=== PATIENT | female | born 1940 | race Hispanic/Latino ===

== ENCOUNTER 2024-09-15 22:03 | Emergency (ER) | payer BC, OTHER ==
[2024-09-15] MEDS ORDERED: ONDANSETRON 4 MG (ODT) TAB ONE (22:46)
[2024-09-15] MEDS ORDERED: HYDROCODONE/APAP 5/325 MG TAB ONE (22:46)
--- NOTE | 2024-09-16 00:21 | ER ---
Nurse's Notes [facility] Name: Brielle Carlton Age: 83 yrs Sex: Female : 1940 Arrival Date: 09/15/2024 Time: 22:03 Bed 18 Private MD: Diagnosis: Pain in left leg-lateral thigh;Fall on same level, unspecified Presentation: 09/15 22:36 Chief complaint: Patient states: I took a miss step up my stairs and fell and now my kd3 hip hurts. 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 I think i might have re injured it. I threw up on the way here because of the pain. Coronavirus screen: Vaccine status: Patient reports being unvaccinated. Ebola Screen: No symptoms or risks identified at this time. Initial Sepsis Screen: Does the patient meet any 2 criteria? No. Patient's initial sepsis screen is negative. Does the patient have a suspected source of infection? No. Patient's initial sepsis screen is negative. Risk Assessment: Do you want to hurt yourself or someone else? Patient reports no desire to harm self or others. Onset of symptoms was September 15, 2024. 22:36 Method Of Arrival: Wheelchair kd3 22:36 Acuity: DARSHAN 3 kd3 09/16 00:13 Care prior to arrival: None. Mechanism of Injury: Fall from standing position. ss12 Triage Assessment: 09/15 22:37 General: Appears uncomfortable, Behavior is calm, cooperative. Pain: Complains of pain kd3 in left hip. Historical: - Allergies: 22:37 No Known Allergies; kd3 - Immunization history:: Adult Immunizations up to date. - Infectious Disease History:: Denies. - Immunization history: Last tetanus immunization: unknown. - Social history:: Smoking status: Patient denies any tobacco usage or history of. Screenin/09 00:10 [facility] ED Fall Risk Assessment (Adult) History of falling in the last 3 months, ss12 including since admission Yes- single mechanical fall (1 pt) Confusion or Disorientation No (0 pts) Intoxicated or Sedated No (0 pts) Impaired Gait No (0 pts) Mobility Assist Device Used No (0 pt) Altered Elimination No (0 pt) Score/Fall Risk Level 0 - 2 = Low Risk. Abuse screen: Denies threats or abuse. Denies injuries from another. Nutritional screening: No deficits noted. Tuberculosis screening: No symptoms or risk factors identified. Primary Survey: 09/15 23:00 NO uncontrolled hemorrhage observed. Breathing/Chest: Spontaneous respiratory effort, ss12 equal unlabored respirations, breath sounds clear bilaterally, regular pattern, symmetrical chest rise and fall. Circulation: No external hemorrhage present. Regular and strong central pulse, skin warm/dry/normal color. Disability Pupils are equal, round, reactive to light and accommodation. Client is alert. Exposure/Environment: A warming method has been applied: A warm blanket has been provided to the patient. 09/16 00:14 Reassessment Breathing: Spontaneous respiratory effort, equal unlabored respirations, ss12 breath sounds clear bilaterally, regular pattern with symmetrical chest rise and fall. Circulation: No external hemorrhage noted. Regular and strong central pulse, skin warm/dry/normal color. Disability: Pupils Pupils are equal, round, reactive to light and accomodation. Alert. Assessment: 09/15 22:30 General: Appears uncomfortable, Behavior is restless. Pain: Complains of pain in left ss12 hip Pain does not radiate. Pain currently is 10 out of 10 on a pain scale. Quality of pain is described as aching, Pain began suddenly, post fall Is. Neuro: No deficits noted. Level of Consciousness is awake, alert, obeys commands, Oriented to person, place, time, situation. Cardiovascular: No deficits noted. Reports nausea, vomiting, Denies syncope, Patient's skin is warm and dry. Respiratory: No deficits noted. Airway is patent Respiratory effort is even, unlabored, Respiratory pattern is regular, symmetrical. GI: No deficits noted. No signs and/or symptoms were reported involving the gastrointestinal system. Abdomen is flat, non-distended. : No deficits noted. No signs and/or symptoms were reported regarding the genitourinary system. : brief changed. incontinent of urine. EENT: No deficits noted. No signs and/or symptoms were reported regarding the EENT system. Derm: No deficits noted. Skin is intact, Skin is dry, Skin is pink, warm \T\ dry. normal. Musculoskeletal: Circulation, motion, and sensation intact. Capillary refill < 3 seconds. 23:30 Reassessment: Patient appears in no apparent distress at this time. Patient and/or ss12 family updated on plan of care and expected duration. Pain level reassessed. Patient is alert, oriented x 3, equal unlabored respirations, skin warm/dry/pink. 09/16 00:30 Reassessment: Patient appears in no apparent distress at this time. Patient and/or ss12 family updated on plan of care and expected duration. Pain level reassessed. Patient is alert, oriented x 3, equal unlabored respirations, skin warm/dry/pink. Vital Signs: 09/15 22:36 BP 160 / 73; Pulse 71; Resp 18; Temp 97.5(O); Pulse Ox 100% on R/A; Weight 32.21 kg; kd3 Height 5 ft. 2 in. ; Pain 10/10; 23:00 BP 144 / 67; Pulse 56; Resp 16 S; Pulse Ox 100% on R/A; ss12 09/16 00:00 BP 136 / 58; Pulse 54; Resp 16 S; Pulse Ox 100% on R/A; ss12 00:30 BP 127 / 77; Pulse 57; Resp 16 S; Pulse Ox 100% on R/A; ss12 09/15 22:36 Body Mass Index 12.99 (32.21 kg, 157.48 cm) kd3 09/15 22:36 Pain Scale: Adult kd3 Samanta Coma Score: 00:15 Eye Response: spontaneous(4). Motor Response: obeys commands(6). Verbal Response: ss12 oriented(5). Total: 15. Trauma Score (Adult): 09/15 23:00 Eye Response: spontaneous(1); Verbal Response: oriented(1); Motor Response: obeys ss12 commands(2); Systolic BP: > 89 mm Hg(4); Respiratory Rate: 10 to 29 per min(4); [place] Score: 15; Trauma Score: 12 ED Course: 22:07 Patient arrived in ED. gl 22:11 Fern[facility]C [facility] kb 22:11 Javier Jacobson MD is Attending Physician. kb 22:37 Triage completed. kd3 22:37 Arm band placed on right wrist. kd3 22:40 Delano Wick, RN is Primary Nurse. ss12 23:15 Femur Left XRAY In Process Unspecified. EDMS 23:15 Pelvis XRAY In Process Unspecified. EDMS 09/16 00:13 No provider procedures requiring assistance completed. ss12 00:14 Patient has correct armband on for positive identification. ss12 00:14 Provided Education on: plan of care. ss12 00:14 Thermoregulation: warm blanket given to patient. ss12 00:14 Patient maintains SpO2 saturation greater than 95% on room air. ss12 00:54 Patient did not have IV access during this emergency room visit. ss12 Administered Medications: 09/15 22:50 Drug: HYDROcodone-acetaminophen PO 5 mg-325 mg 1 tabs PO once Route: PO; ss12 22:50 Drug: Ondansetron Oral Disintegrating Tablet Oral Disintegrating Tablet 4 mg PO once ss12 Route: PO; Medication: 09/16 00:13 VIS not applicable for this client. ss12 Intake: 00:14 PO: 50ml (Water); Total: 50ml. ss12 Outcome: 00:14 Patient's length of stay was not longer than 2 hours. ss12 00:21 Discharge ordered by MD. kb 00:54 Discharged to home ambulatory, ss12 00:54 Condition: stable 00:54 Discharge instructions given to patient, family, Instructed on discharge instructions, follow up and referral plans. Demonstrated understanding of instructions, follow-up care, Prescriptions given X 2, 00:56 Patient left the ED. 12 Signatures: Dispatcher [employer] EDNE Fernanda Au, LISANDRA JIN-Alethea Godinez, RN RN kd3 Alyssia Dhaliwal, Reg Reg gl Delano Wick, RN RN ss12 Corrections: (The following items were deleted from the chart) 00:53 00:53 Reassessment: Patient appears in no apparent distress at this time. Patient ss12 and/or family updated on plan of care and expected duration. Pain level reassessed. Patient is alert, oriented x 3, equal unlabored respirations, skin warm/dry/pink. ss12
--- NOTE | 2024-09-16 00:21 | EDPHYS ---
Physician Documentation [facility] Name: Brielle Carlton Age: 83 yrs Sex: Female : 1940 Arrival Date: 09/15/2024 Time: 22:03 Bed 18 Private MD: ED Physician Javier Jacobson HPI: 09/16 00:54 This 83 yrs old Female presents to ER via Wheelchair with complaints of Fall kb Injury, Hip Injury. 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 States she was walking through the threshold of her granddaughter's house and didn't left her foot enough. States she tripped and fell into the house. Denies any other injury or trauma. . Historical: - Allergies: 09/15 22:37 No Known Allergies; kd3 - Immunization history:: Adult Immunizations up to date. - Infectious Disease History:: Denies. - Immunization history: Last tetanus immunization: unknown. - Social history:: Smoking status: Patient denies any tobacco usage or history of. ROS: 09/16 00:53 Constitutional: As per HPI kb Exam: 00:53 Constitutional: This is a well developed, well nourished patient who is awake, alert, kb and in no acute distress. Head/Face: Normocephalic, atraumatic. ENT: Moist Mucous membranes Cardiovascular: Regular rate Respiratory: Respirations even and unlabored. No increased work of breathing. Talking in full sentences Abdomen/GI: Soft, non-tender. No distention Skin: Warm, dry with normal turgor. Normal color. Neuro: Awake and alert, GCS 15, oriented to person, place, time, and situation. 00:53 Musculoskeletal/extremity: Extremities: grossly normal except: noted in the lateral aspect of left thigh: pain, tenderness, ROM: intact in all extremities, Circulation is intact in all extremities. Sensation intact. Weight bearing: is unable to bear weight, Vital Signs: 09/15 22:36 BP 160 / 73; Pulse 71; Resp 18; Temp 97.5(O); Pulse Ox 100% on R/A; Weight 32.21 kg; kd3 Height 5 ft. 2 in. ; Pain 10/10; 23:00 BP 144 / 67; Pulse 56; Resp 16 S; Pulse Ox 100% on R/A; ss12 09/16 00:00 BP 136 / 58; Pulse 54; Resp 16 S; Pulse Ox 100% on R/A; ss12 00:30 BP 127 / 77; Pulse 57; Resp 16 S; Pulse Ox 100% on R/A; ss12 09/15 22:36 Body Mass Index 12.99 (32.21 kg, 157.48 cm) kd3 09/15 22:36 Pain Scale: Adult kd3 Samanta Coma Score: 00:15 Eye Response: spontaneous(4). Motor Response: obeys commands(6). Verbal Response: ss12 oriented(5). Total: 15. Trauma Score (Adult): 09/15 23:00 Eye Response: spontaneous(1); Verbal Response: oriented(1); Motor Response: obeys ss12 commands(2); Systolic BP: > 89 mm Hg(4); Respiratory Rate: 10 to 29 per min(4); [place] Score: 15; Trauma Score: 12 MDM: 22:11 Medical Screening Exam initiated kb 09/16 00:54 Differential diagnosis: contusion, fracture, strain, dislocation. Data reviewed: vital kb signs, nurses notes. Historians other than the Patient: Family Member: son. Counseling: I had a detailed discussion with the patient and/or guardian regarding the historical points, exam findings, and any diagnostic results supporting the discharge/admit diagnosis, radiology results, the need for outpatient follow up, a family practitioner, to return to the emergency department if symptoms worsen or persist or if there are any questions or concerns that arise at home. 09/15 22:24 Order name: Femur Left XRAY kb 09/15 22:24 Order name: Pelvis XRAY Administered Medications: 09/15 22:50 Drug: HYDROcodone-acetaminophen PO 5 mg-325 mg 1 tabs PO once Route: PO; ss12 22:50 Drug: Ondansetron Oral Disintegrating Tablet Oral Disintegrating Tablet 4 mg PO once ss12 Route: PO; Disposition: 09/16 04:18 Co-signature as Attending Physician, Javier Jacobson MD I agree with the assessment sp4 and plan of care. I reviewed the patient's care provided by the Advanced Practice Provider and agree with the diagnosis and treatment plan. Disposition Summary: 09/16/24 00:21 Discharge Ordered Notes: Location: Home kb Condition: Stable kb Diagnosis - Pain in left leg - lateral thigh kb - Fall on same level, unspecified kb Followup: kb - With: Emergency Department - When: As needed - Reason: Worsening of condition Followup: kb - With: Private Physician - When: 2 - 3 days - Reason: Recheck today's complaints, Continuance of care, Re-evaluation by your physician Discharge Instructions: - Discharge Summary Sheet kb - Musculoskeletal Pain kb - Fall Prevention in the Home, Adult, [id number] kb Forms: - Medication Reconciliation Form kb - Antibiotic Education kb - Prescription Opioid Use kb - Patient Portal Instructions kb - Leadership Thank You Letter kb Prescriptions: - acetaminophen-codeine 300-30 mg Oral tablet - take 1 tablet ORAL route every 4 to 6 hours as needed for pain; 12 tablet; kb Refills: 0, Product Selection Permitted - Zofran 4 mg Oral tablet - take 1 tablet ORAL route every 6 hours As needed; 12 tablet; Refills: 0, kb Product Selection Permitted Signatures: Dispatcher [employer] EDFernanda Michaels FNP-C FNP-Alethea Godinez, RN RN kd3 Javier Jacobson MD MD sp4 Delano Wick RN RN ss12 Corrections: (The following items were deleted from the chart) 09/15 22:25 22:25 Pelvis+RAD.RAD.[email or web address] ordered. EDDE EDMS
--- NOTE | 2024-09-16 00:39 | RAD REPORT ---
EXAM: XR Pelvis, 1 or 2 Views CLINICAL HISTORY: The patient is 83 years old and is Female; PAIN TECHNIQUE: Frontal view of the pelvis. COMPARISON: No relevant prior studies available. FINDINGS: BONES/JOINTS: A left hip prosthesis is present. 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 The bones are osteopenic. The femoral heads are located. The SI joints and pubic symphysis are intact without evidence of diastases. No acute fract ure. No dislocation. SOFT TISSUES: Unremarkable. IMPRESSION: No acute findings in the pelvis. Electronically signed by: Pina Hastings MD 09/15/2024 11:53 PM CDT RP Due to temporary technical issues with the PACS/Virool reporting system, reports are being jennifer d by the in-house radiologist without review as a courtesy to ensure prompt reporting the interpreting radiologist is fully responsible for the content of the report. Transcribed Date/Time: 09/16/2024 12:39 AM
--- NOTE | 2024-09-16 00:40 | RAD REPORT ---
EXAM: XR Left Femur, 2 Views CLINICAL HISTORY: The patient is 83 years old and is Female; PAIN TECHNIQUE: Frontal and lateral views of the left femur. COMPARISON: No relevant prior studies available. FINDINGS: BONES/JOINTS: A left hip prosthesis is present. The hardware is engaged. Bone mineralization and contour is normal. The knee joint is intact. No acute fracture. No dislocation. SOFT TISSUES: Unremarkable. IMPRESSION: No acute findings in the left femur. Electronically signed by: Pina Hastings MD 09/15/2024 11:54 PM CDT RP Due to temporary technical issues with the PACS/Teez.mobi reporting system, reports are being jennifer d by the in-house radiologist without review as a courtesy to ensure prompt reporting the interpreting radiologist is fully responsible for the content of the report. Transcribed Date/Time: 09/16/2024 12:40 AM
[2024-09-16 01:25] VITALS: TEMP 97.5; O2SAT 100
[2024-09-16 01:30] VITALS: BP 127/77
== END 2024-09-16 00:56 | disposition home or self-care (01) ==
LOC: ER 22:03
DX: M79.652 Pain in left thigh (principal); W01.0XXA Fall on same level from slipping, tripping and stumbling without subsequent striking against object, initial encounter
CPT/HCPCS: 72170; 73552; 99283; Q0162

== ENCOUNTER 2024-09-16 12:07 | Inpatient (IN) | payer OTHER, BC ==
[2024-09-16 12:46] LABS: Absolute Lymphocytes (CBC) 1.3 K/uL (0.7-4.9); Hematocrit 31.1 % (36.0-45.0); Hemoglobin 10.5 g/dL (12.0-15.0); MCH 28.6 pg (27.0-35.0); MCHC 33.7 g/dL (32.0-36.0); MCV 85.0 fL (80-100); MPV 9.1 fL (7.6-11.3); Nucleated RBC Absolute Count 0.0 (0-0); Nucleated Red Blood Cells % 0.1 % (0-0); RBC Red Blood Cell Count 3.66 M/uL (3.86-4.86); White Blood Count 4.50 thou/uL (4.3-10.9)
[2024-09-16 13:01] LABS: Anion Gap 6.7 mEq/L (5.0-15.0); BUN Blood Urea Nitrogen 22.0 mg/dL (7-18); Glucose Level 101.0 mg/dL (74-106); Magnesium 2.1 mg/dL (1.6-2.4); Potassium 3.7 mEq/L (3.5-5.1); Troponin High Sensitivity 4.8 pg/mL (<58.9)
[2024-09-16 13:25] LABS: Blood Morphology Comment NOT SEEN (NOT SEEN); White Blood Cell Scan OK (OK)
--- NOTE | 2024-09-16 13:56 | RAD REPORT ---
EXAMINATION: ONE VIEW CHEST XR CLINICAL INDICATION: Female, 83 years old.,SOB TECHNIQUE: Frontal chest projection is submitted. Examination is limited by patient positioning and t echnique. COMPARISON: No prior exam. FINDINGS: The lungs are well inflated and clear. No pneumothorax or sizable effusion. The heart is normal in s ize. Mediastinal contours are unremarkable. IMPRESSION: No acute intrathoracic abnormalities.
--- NOTE | 2024-09-16 14:40 | RAD REPORT ---
EXAMINATION: CT PELVIS WITHOUT CONTRAST CLINICAL INDICATION: Female, 83 years old.[facility] MAIN PAIN Bed Name: 4 TECHNIQUE: CT pelvis was performed, without IV contrast, as per department protocol. Axial, sagittal and coronal reconstructions were obtained. One or more of the following dose reduction techniques were used: Automated exposure control, adjustment of the mA and/or kV according to patient size, and/ or iterative reconstruction. Unless otherwise specified, incidental findings do not require dedicated imaging follow-up. COMPARISON: No prior exam. FINDINGS: The lack of intravenous contrast limits the sensitivity of this exam for evaluation of solid visceral organs, vascular structures, and retroperitoneum. MUSCULOSKELETAL: Left total hip arthroplasty in place, components in good alignment. Cortical irregul arity with depressed contour along the right femoral head, findings which may relate to advanced degenerative changes or sequelae of avascular necrosis lower lumbar degenerative changes. Mild sacroi liac and symphysis pubis degenerative changes. URINARY SYSTEM: No abnormalities of the included kidneys and ureters. Urinary bladder is unremarkable . GASTROINTESTINAL TRACT: Included small bowel is normal in caliber. No wall thickening or bowel inflam matory changes. Large stool burden in the rectum. LYMPH NODES: Small inguinal and external iliac prominent lymph nodes measuring 11 mm in short axis on the RIGHT and 8 mm on the LEFT, nonspecific, favored to be reactive ABDOMINAL AORTA AND OTHER VESSELS: Normal caliber aorta and IVC. ADDITIONAL FINDINGS: Small inguinal hernias containing fat. IMPRESSION: No acute abnormalities of the bony pelvis. Evaluation limited by lack of IV contrast. Chronic findings as above, including cortical irregularities and subchondral depression along the rig ht humeral head which may relate to advanced degenerative changes or sequelae of avascular necrosis. Other incidental findings as above.
[2024-09-16] MEDS ORDERED: NA CHLORIDE 0.9% 500 ML ONE (15:46)
--- NOTE | 2024-09-16 16:05 | ER ---
Nurse's Notes [facility] Name: Brielle Carlton Age: 83 yrs Sex: Female : 1940 Arrival Date: 09/16/2024 Time: 12:07 Bed 4 Private MD: Diagnosis: Syncope Near-Syncope Presentation: 09/16 12:10 Chief complaint: EMS states: LEFT HIP PAIN SINCE FALL LAST PM WITH NEAR SYNCOPE THIS bp AM. Coronavirus screen: At this time, the client does not indicate any symptoms associated with coronavirus-19. Ebola Screen: No symptoms or risks identified at this time. Initial Sepsis Screen: Does the patient meet any 2 criteria? No. Patient's initial sepsis screen is negative. Does the patient have a suspected source of infection? No. Patient's initial sepsis screen is negative. Risk Assessment: Do you want to hurt yourself or someone else? Patient reports no desire to harm self or others. Onset of symptoms is unknown. Care prior to arrival: IV initiated. 20 GA, in the left antecubital area, Glucose check: 87. 12:10 Method Of Arrival: EMS: [facility] bp 12:10 Acuity: DARSHAN 3 bp Triage Assessment: 12:10 General: Appears in no apparent distress. Behavior is cooperative, appropriate for age, bp anxious. Pain: Complains of pain in left hip. EENT: No deficits noted. Neuro: Reports NEAR SYNCOPE. Cardiovascular: Rhythm is sinus rhythm. Respiratory: No deficits noted. GI: No signs and/or symptoms were reported involving the gastrointestinal system. : No signs and/or symptoms were reported regarding the genitourinary system. Derm: No deficits noted. Musculoskeletal: No deficits noted. Historical: - Allergies: 12:16 No Known Allergies; bp - PMHx: 12:16 None; bp - Immunization history:: Adult Immunizations up to date. - Infectious Disease History:: Denies. - Social history:: Smoking status: Patient denies any tobacco usage or history of. - History obtained from: EMS. Screenin:10 [facility] ED Fall Risk Assessment (Adult) History of falling in the last 3 months, bp including since admission Yes- single mechanical fall (1 pt) Confusion or Disorientation No (0 pts) Intoxicated or Sedated No (0 pts) Impaired Gait No (0 pts) Mobility Assist Device Used Yes (1 pt) Altered Elimination No (0 pt) Score/Fall Risk Level 0 - 2 = Low Risk Oriented to surroundings. Abuse screen: Denies threats or abuse. Denies injuries from another. Nutritional screening: No deficits noted. Tuberculosis screening: No symptoms or risk factors identified. Assessment: 12:10 General: SEE TRIAGE NOTE. bp 14:00 Reassessment: No changes from previously documented assessment. Patient is alert, bp oriented x 3, equal unlabored respirations, skin warm/dry/pink. 17:00 Reassessment: REPORT FAXED FOR RM 203. bp 17:30 Reassessment: ADMIT ON HOLD FOR ADMIT ORDERS. bp Vital Signs: 12:10 BP 134 / 70; Pulse 68; Resp 16; Temp 98; Pulse Ox 98% ; bp 15:40 BP 103 / 51; Pulse 68; Resp 16; Pulse Ox 100% ; bp 16:35 BP 109 / 83; Pulse 63; Resp 19 S; Pulse Ox 96% on R/A; aa5 ED Course: 12:09 Patient arrived in ED. bp 12:10 Patient has correct armband on for positive identification. bp 12:10 Initial lab(s) drawn, by ED staff, sent to lab. EKG done, by ED staff, reviewed by bp Pedro Fernandes. Maintain EMS IV. Dressing intact. Good blood return noted. Site clean \T\ dry. Gauge \T\ site: 20 LAC. Flushed with 10 mL NS. 12:11 Pedro Fernandes is Attending Physician. ci 12:15 Triage completed. bp 12:16 David Aranda, RN is Primary Nurse. bp 12:16 Arm band placed on. bp 13:12 XRAY Chest (1 view) In Process Unspecified. EDMS 13:16 CT Pelvis wo Cont In Process Unspecified. EDMS 16:03 Ruy Tipton is Hospitalizing Provider. ci 16:48 CT Head Brain wo Cont In Process Unspecified. EDMS 16:52 CT Chest For PE Angio In Process Unspecified. EDMS 19:52 Provided Education on: admission. cp4 19:52 No provider procedures requiring assistance completed. Patient admitted, IV remains in cp4 place. Administered Medications: 15:53 Drug: NS 0.9% IV 500 ml IV at bolus once; to be given as a bolus over 30 minutes Route: bp IV; Rate: bolus; Site: left forearm; 19:53 Follow up: IV Status: Completed infusion cp4 Medication: 19:52 VIS not applicable for this client. cp4 Outcome: 16:04 Decision to Hospitalize by Provider. ci 19:52 Admitted to Med/surg accompanied by tech, via stretcher, room 203, with chart, cp4 19:52 Condition: stable 19:52 Instructed on the need for admit, 19:52 Patient left the ED. cp4 Signatures: Dispatcher [employer] EDZoey Funes, RN RN mily5 David Aranda, GIBSON RN Deb Schmitt cp4 Pedro Fernandes ci
--- NOTE | 2024-09-16 16:05 | EDPHYS ---
Physician Documentation [facility] Name: Brielle Carlton Age: 83 yrs Sex: Female : 1940 Arrival Date: 09/16/2024 Time: 12:07 Bed 4 Private MD: ED Physician Pedro Fernandes HPI: 09/16 15:26 This 83 yrs old Female presents to ER via EMS with complaints of Hip Pain. ci 15:26 Patient is an 83-year-old female with no PMH who presents to the ED with chief ci complaint of near syncope that occurred today. Patient almost fell but was caught by her son but EMS reports passed out for 30 seconds. Patient was seen in the ED yesterday for a fall at left hip pain.. Historical: - Allergies: 12:16 No Known Allergies; bp - PMHx: 12:16 None; bp - Immunization history:: Adult Immunizations up to date. - Infectious Disease History:: Denies. - Social history:: Smoking status: Patient denies any tobacco usage or history of. - History obtained from: EMS. ROS: 15:26 Constitutional: Negative for fever, chills, and weight loss, Cardiovascular: Negative ci for chest pain, palpitations, and edema, Respiratory: Negative for shortness of breath, cough, wheezing, and pleuritic chest pain, Neuro: Negative for headache, weakness, numbness, tingling, and seizure, positive tremors 15:26 MS/extremity: Positive for Left hip pain, Exam: 15:26 Constitutional: This is a well developed, well nourished patient who is awake, alert, ci and in no acute distress. Head/Face: Normocephalic, atraumatic. Cardiovascular: Regular rate and rhythm with a normal S1 and S2. No gallops, murmurs, or rubs. Normal PMI, no JVD. No pulse deficits. Respiratory: Lungs have equal breath sounds bilaterally, clear to auscultation and percussion. No rales, rhonchi or wheezes noted. No increased work of breathing, no retractions or nasal flaring. Abdomen/GI: Soft, non-tender, with normal bowel sounds. No distension or tympany. No guarding or rebound. No evidence of tenderness throughout. Skin: Warm, dry with normal turgor. Normal color with no rashes, no lesions, and no evidence of cellulitis. MS/ Extremity: Pulses equal, no cyanosis. Neurovascular intact. Full, normal range of motion. Neuro: Awake and alert, GCS 15, oriented to person, place, time, and situation. Cranial nerves II-XII grossly intact. Motor strength 5/5 in all extremities. Sensory grossly intact. Cerebellar exam normal. Normal gait. Vital Signs: 12:10 BP 134 / 70; Pulse 68; Resp 16; Temp 98; Pulse Ox 98% ; bp 15:40 BP 103 / 51; Pulse 68; Resp 16; Pulse Ox 100% ; bp 16:35 BP 109 / 83; Pulse 63; Resp 19 S; Pulse Ox 96% on R/A; aa5 MDM: 12:13 Medical Screening Exam initiated ci 12:25 ED course: EKG shows normal sinus rhythm, heart rate 69, nonspecific ST changes.. ci 16:05 Differential diagnosis: strain, vasovagal syncope, orthostatic hypotension, fracture, ci dislocation, PE, PNA, ACS. Data reviewed: vital signs, nurses notes, EKG. 16:20 ED course: Patient's son arrived to the ER reports patient passed out twice while he ci was attempted to transfer patient to the toilet. Given recurrent syncope and history of fall, will admit for further management and investigation. CT PE ordered rule out pulmonary embolism, unremarkable with no evidence of PE. CT head unremarkable. Discussed with hospitalist who accepted patient for admission.. 09/16 12:12 Order name: Basic Metabolic Panel; Complete Time: 14:36 ci 09/16 12:12 Order name: CBC with Diff; Complete Time: 14:36 ci 09/16 15:35 Interpretation: HGB 10.5; PLT 99. ci 09/16 12:12 Order name: D-Dimer; Complete Time: 14:36 ci 08 15:35 Interpretation: Abnormal: D-DIMER 22.400. ci 08 12:12 Order name: Magnesium; Complete Time: 14:36 ci 09/16 12:12 Order name: Troponin HS; Complete Time: 14:36 ci 09/16 12:53 Order name: CBC Smear Scan; Complete Time: 14:36 EDMS 09/16 15:48 Order name: UA Rfx Michael Cult if indicated ci 09/16 18:02 Order name: Basic Metabolic Panel EDMS 08/09 18:02 Order name: Basic Metabolic Panel EDMS 09/16 18:02 Order name: Basic Metabolic Panel EDMS 09/16 18:02 Order name: Basic Metabolic Panel EDMS 09/16 18:02 Order name: Basic Metabolic Panel EDMS 09/16 18:02 Order name: Basic Metabolic Panel EDMS 09/16 18:02 Order name: Basic Metabolic Panel EDMS 09/16 18:02 Order name: Basic Metabolic Panel EDMS 09/16 18:02 Order name: Lipid Profile EDMS 09/16 18:02 Order name: Lipid Profile EDMS 09/16 18:02 Order name: Magnesium EDMS 09/16 18:02 Order name: Magnesium EDMS 09/16 18:02 Order name: Magnesium EDMS 09/16 18:02 Order name: Magnesium EDMS 09/16 18:02 Order name: Magnesium EDMS 09/16 18:02 Order name: Magnesium EDMS 09/16 18:02 Order name: Magnesium EDMS 09/16 18:02 Order name: Magnesium EDMS 09/16 18:02 Order name: Phosphorus EDMS 09/16 18:02 Order name: Phosphorus EDMS 09/16 18:02 Order name: Phosphorus EDMS 09/16 18:02 Order name: Phosphorus EDMS 09/16 18:02 Order name: Phosphorus EDMS 09/16 18:02 Order name: Phosphorus EDMS 09/16 18:03 Order name: CBC with Automated Diff EDMS 09/16 18:03 Order name: CBC with Automated Diff EDMS 09/16 18:03 Order name: CBC with Automated Diff EDMS 09/16 18:03 Order name: CBC with Automated Diff EDMS 09/16 18:03 Order name: CBC with Automated Diff EDMS 09/16 18:03 Order name: CBC with Automated Diff EDMS 09/16 18:03 Order name: CBC with Automated Diff EDMS 09/16 18:03 Order name: CBC with Automated Diff EDMS 09/16 18:03 Order name: Phosphorus EDMS 09/16 18:03 Order name: Phosphorus EDMS 09/16 18:03 Order name: T4 Free EDMS 09/16 18:03 Order name: T4 Free EDMS 09/16 18:03 Order name: Thyroid Stimulating Hormone EDMS 09/16 18:03 Order name: Thyroid Stimulating Hormone EDMS 09/16 18:03 Order name: Troponin High Sensitivity EDMS 09/16 18:03 Order name: Troponin High Sensitivity EDMS 09/16 18:03 Order name: Troponin High Sensitivity EDMS 09/16 12:12 Order name: XRAY Chest (1 view); Complete Time: 14:36 ci 08 15:35 Interpretation: No acute disease. ci 09/16 12:54 Order name: CT Pelvis wo Cont; Complete Time: 14:44 ci 09/16 15:37 Order name: CT Chest For PE Angio; Complete Time: 18:39 ci 09/16 15:46 Order name: CT Head Brain wo Cont; Complete Time: 18:39 ci 09/16 18:03 Order name: Echo with Doppler EDMS 09/16 18:03 Order name: Echo with Doppler EDMS 09/16 18:03 Order name: ERT ORTHOSTATIC V/S EDMS 09/16 12:12 Order name: EKG; Complete Time: 12:13 ci 09/16 18:03 Order name: Physical Therapy Consult EDMS 09/16 12:12 Order name: Cardiac monitoring; Complete Time: 12:17 ci 09/16 12:12 Order name: EKG - Nurse/Tech; Complete Time: 12:31 ci 09/16 12:12 Order name: IV Saline Lock; Complete Time: 12:17 ci 09/16 12:12 Order name: Labs collected and sent; Complete Time: 12:31 ci 09/16 12:12 Order name: O2 Per Protocol; Complete Time: 12:17 ci 09/16 12:12 Order name: O2 Sat Monitoring; Complete Time: 12:17 ci Administered Medications: 15:53 Drug: NS 0.9% IV 500 ml IV at bolus once; to be given as a bolus over 30 minutes Route: bp IV; Rate: bolus; Site: left forearm; 19:53 Follow up: IV Status: Completed infusion cp4 Disposition Summary: 09/16/24 16:04 Hospitalization Ordered Notes: Hospitalization Status: Observation ci Provider: Ruy Tipton Location: Telemetry/MedSurg (observation) ci Condition: Stable ci Problem: new ci Symptoms: are unchanged ci Bed/Room Type: Standard ci Room Assignment: 203(09/16/24 16:54) sp Diagnosis - Syncope Near - Syncope ci Forms: - Medication Reconciliation Form ci - SBAR form ci - Leadership Thank You Letter ci Signatures: Dispatcher [employer] Fernanda Waldrop, ENROLLMENT CLERK-C ENROLLMENT CLERK-Ckb Perlita Griffin Brian, RN RN Pedro Fernandes Christina cp4 Corrections: (The following items were deleted from the chart) 16:54 16:04 ci sp
--- NOTE | 2024-09-16 17:35 | RAD REPORT ---
EXAM: CT Head Brain Wo Cont HISTORY: DIZZINESS COMPARISON: None TECHNIQUE: Multiple contiguous axial images were obtained for a CT of the brain without contrast. Sag ittal and coronal reformats were performed. One or more of the following dose reduction techniques were used: Automated exposure control, adjus tment of the mA and kV according to patient size, and iterative reconstruction. Unless otherwise specified, incidental findings do not require dedicated imaging follow-up. FINDINGS: No evidence of hydrocephalus, intracranial hemorrhage, or extra-axial fluid collection. 9 mm extra-ax ial right opercular calcific lesion suggesting a small meningioma. Bilateral parietal encephalomalacia more so on the right. Moderate periventricular and deep white mat ter chronic microvascular ischemic changes present. The calvarium is intact. Partial opacification of the maxillary sinuses more so on the right with rad iodense material suggesting inspissated secretions or fungal colonization. Mastoid air cells are essentially clear. IMPRESSION: No evidence of acute intracranial abnormality. Chronic findings as above.
--- NOTE | 2024-09-16 17:50 | RAD REPORT ---
EXAM: CT Chest For Pe Angio TECHNIQUE: CT angiogram of the chest was performed following intravenous contrast administration, inc luding sagittal and coronal as well as maximum intensity projection reformats. One or more of the following dose reduction techniques were used: Automated exposure control, adjustment of the mA and k V according to patient size, and iterative reconstruction. Unless otherwise specified, incidental findings do not require dedicated imaging follow-up. INDICATION: SOB;PE COMPARISON: Chest radiograph of the same day. FINDINGS: LINES/TUBES: None. PULMONARY ARTERIES: Main pulmonary arteries are normal in caliber. No filling defects within the pul monary arteries to suggest pulmonary embolus. LUNGS AND AIRWAYS: The lungs and central airways are normal without focal abnormality apart from righ t dependent and platelike atelectasis. PLEURA: No effusion or pneumothorax. HEART AND MEDIASTINUM: The visualized thyroid gland is normal. No mediastinal, hilar, or axillary lym phadenopathy. Heart is unremarkable. No pericardial effusion. SOFT TISSUES AND BONES: No acute osseous abnormality. No significant soft tissue finding. UPPER ABDOMEN: Unremarkable. IMPRESSION: No evidence of acute central pulmonary emboli. No suspicious intrathoracic findings..
--- NOTE | 2024-09-16 19:04 | P.HP ---
Certification for Inpatient Patient admitted to: Inpatient With expected LOS: >2 Midnights Practitioner: I am a practitioner with admitting privileges, knowledge of patient current condition, hospital course, and medical plan of care. Services: Services provided to patient in accordance with Admission requirements found in Title 42 Section 412.3 of the Code of Federal Regulations Patient History Date of Service: 09/16/24 Reason for admission: Frequent falls History of Present Illness: Brielle Carlton is an 83 year old female with no significant pmhx who presents to the ED after a fall at home. EMS reports she became unconscious for 30 seconds. Reportedly she was caught by her son and was laid down on the floor. She also came to the ED earlier this week after a fall. Her chief complaint is left hip pain. She has an implant in place to the left hip with imaging reporting proper placement. Laboratory evaluation significant for H&H 12/08, BUN/creatinine 22/1.27, GFR 42, D-dimer 22.4 Chest x-ray reports "The lungs are well inflated and clear. No pneumothorax or sizable effusion. The heart is normal in size. Mediastinal contours are unremarkable." CT pelvis without contrast report "No acute abnormalities of the bony pelvis." CT chest PE protocol report "No evidence of acute central pulmonary emboli. No suspicious intrathoracic findings." Head CT report "No evidence of acute intracranial abnormality." Abebe will be admitted to hospitalist service for further evaluation and treatment of syncope,frequent falls. - Past Medical/Surgical History Past Medical History: Unable to obtain Past Surgical History: Unable to obtain - Social History Smoking Status: Unknown if ever smoked Alcohol use: No CD- Drugs: No Review of Systems Other: Per HPI Physical Examination - Physical Exam General: Alert, In no apparent distress, Oriented x3, Cachectic, Other (Drowsy) HEENT: Atraumatic, Normocephalic, PERRLA Neck: Supple Respiratory: Clear to auscultation bilaterally Cardiovascular: Normal pulses, Regular rate/rhythm Gastrointestinal: Normal bowel sounds, Soft and benign Musculoskeletal: No clubbing Integumentary: No rashes Neurological: Normal speech, Normal tone - Studies Laboratory Data (last 24 hrs) 09/16/24 09/16/24 12:25 12:25 WBC 4.50 Hgb 10.5 L Hct 31.1 L Plt Count 99 L Sodium 139 Potassium 3.7 BUN 22 H Creatinine 1.27 H Glucose 101 Magnesium 2.1 Assessment and Plan - Plan Assessment and plan Syncopal episode Frequent falls 2/2 generalized weakness Left hip pain Elevated D-dimer -Orthostatics Vitals -ECHO ordered -Continuous telemetry -Trend troponin -consider Consult cardiology - Physical therapy - Gentle IV fluid - Urine pending Cachectic - Patient reports decreased p.o. intake and losing weight in the past few months - Schedule protein shakes DVT PPx heparin Full code LOS 2 to 3 days Discharge Plan: Home Plan to discharge in: 72 Hours - Advance Directives Does patient have a Living Will: No Does patient have a Durable POA for Healthcare: No Time Spent Managing Pts Care (In Minutes): 55
[2024-09-16] MEDS: NA CHLORIDE 0.9% 1,000 ML IV SCH (20:46)
[2024-09-17] MEDS: HEPARIN 5000 UNIT/ML 1 ML VIAL SQ SCH (01:31)
[2024-09-17 04:28] LABS: Absolute Lymphocytes (CBC) 1.5 K/uL (0.7-4.9); Hematocrit 30.2 % (36.0-45.0); Hemoglobin 10.4 g/dL (12.0-15.0); MCH 29.0 pg (27.0-35.0); MCHC 34.4 g/dL (32.0-36.0); MCV 84.3 fL (80-100); MPV 8.9 fL (7.6-11.3); Nucleated RBC Absolute Count 0.0 (0-0); Nucleated Red Blood Cells % 0.1 % (0-0); RBC Red Blood Cell Count 3.58 M/uL (3.86-4.86); White Blood Count 3.90 thou/uL (4.3-10.9)
[2024-09-17 04:51] LABS: Anion Gap 7.3 mEq/L (5.0-15.0); BUN Blood Urea Nitrogen 19.0 mg/dL (7-18); Glucose Level 101.0 mg/dL (74-106); HDL Cholesterol 58.0 mg/dL (40-60); LDL Cholesterol, Calculated 41.0 mg/dL (<130); LDL Cholesterol,Calc NonReport 41.0; Magnesium 2.0 mg/dL (1.6-2.4); Potassium 3.3 mEq/L (3.5-5.1); Thyroid Stimulating Hormone 1.21 uIU/mL (0.358-3.740)
[2024-09-17] MEDS: AMLODIPINE 5 MG TAB PO SCH (09:00)
[2024-09-17] MEDS: LEVETIRACETAM 500 MG PO SCH (09:00)
[2024-09-17] MEDS: ASPIRIN EC 81 MG TAB PO SCH (09:20)
[2024-09-17] MEDS: VALSARTAN 160 MG TAB PO SCH (09:20)
[2024-09-17] MEDS: BUSPIRONE HCL 5 MG TABLET PO SCH (09:20)
[2024-09-17] MEDS: POTASSIUM CL SA 10 MEQ TAB PO ONE (09:21)
[2024-09-17] MEDS: SERTRALINE HCL 100 MG TAB PO SCH (09:21)
[2024-09-17] MEDS: GABAPENTIN 100 MG CAP PO SCH (09:21)
[2024-09-17] MEDS: levETIRAcetam 500 MG TAB PO SCH (10:02)
--- NOTE | 2024-09-17 11:48 | P.PN ---
Date of Service: 09/17/24 Subjective Awake, reports she doesn't sleep well at night awaiting orthostatic vitals Family at bedside reports she fell on 09/15, then was incredibly weak yesterday 09/16 ROS 10 point ROS as noted above, otherwise negative Physical Exam General: Alert, In no apparent distress, Oriented x3, Cachectic, Other (Drowsy) HEENT: Atraumatic, Normocephalic, PERRLA Neck: Supple Respiratory: Clear BBS Cardiovascular: Normal pulses, Regular rate/rhythm Gastrointestinal: Normal bowel sounds, Soft and benign Musculoskeletal: No clubbing Integumentary: No rashes Neurological: Normal speech, Normal tone Vitals Reviewed Problem list Syncopal episode Frequent falls 2/2 generalized weakness Left hip pain Elevated D-dimer Cachectic Assessment and Plan Syncopal episode Frequent falls 2/2 generalized weakness Left hip pain Elevated D-dimer -Orthostatics Vitals: lying down BP159/70, HR 77, sitting BP148/72, HR 77, standing BP135/63, HR 85 -ECHO ordered -Continuous telemetry -Troponin trended flat -consider Consult cardiology - Physical therapy - Gentle IV fluid - Urine pending -keppra level pending Cachectic - Patient reports decreased p.o. intake and losing weight in the past few months - Schedule protein shakes DVT PPx heparin Full code LOS 2 to 3 days Discharge Plan: Home Plan to discharge in: 72 Hours Time Spent Managing Pts Care (In Minutes): 35
[2024-09-17] MEDS: SIMETHICONE 80 MG CHEWABLE TAB PO PRN (12:27)
[2024-09-17] MEDS: HYDRALAZINE HCL 20 MG/ML VIAL IV PRN (12:27)
[2024-09-17] MEDS: ACETAMINOPHEN 325 MG TABLET PO PRN (14:02)
[2024-09-17] MEDS: MEMANTINE HCL 10 MG TABLET PO SCH (20:52)
[2024-09-17] MEDS: DONEPEZIL HCL 10 MG PO SCH (20:57)
[2024-09-17] MEDS ORDERED: levETIRAcetam 500 MG TAB PO SCH (21:00)
[2024-09-17] MEDS: POTASSIUM 25 MEQ EFFERV TAB PO ONE (23:48)
[2024-09-18 04:27] LABS: Absolute Lymphocytes (CBC) 1.1 K/uL (0.7-4.9); Hematocrit 28.8 % (36.0-45.0); Hemoglobin 9.9 g/dL (12.0-15.0); MCH 29.1 pg (27.0-35.0); MCHC 34.4 g/dL (32.0-36.0); MCV 84.6 fL (80-100); MPV 8.7 fL (7.6-11.3); Nucleated RBC Absolute Count 0.0 (0-0); Nucleated Red Blood Cells % 0.1 % (0-0); RBC Red Blood Cell Count 3.41 M/uL (3.86-4.86); White Blood Count 3.10 thou/uL (4.3-10.9)
[2024-09-18 04:45] LABS: Anion Gap 5.4 mEq/L (5.0-15.0); BUN Blood Urea Nitrogen 19.0 mg/dL (7-18); Glucose Level 90.0 mg/dL (74-106); Magnesium 1.8 mg/dL (1.6-2.4); Potassium 3.4 mEq/L (3.5-5.1)
--- NOTE | 2024-09-18 09:30 | P.PN ---
Date of Service: 09/18/24 Subjective Feeling well, eating breakfast, conversing well, mentation is better no new complaints Awaiting UA collected, ECHO, and PT to determine discharge. ROS 10 point ROS as noted above, otherwise negative Physical Exam General: Alert and Oriented x3, Cachectic, Other (Drowsy) HEENT: Atraumatic Respiratory: Clear BBS Cardiovascular: RRR, S1 S2 present Gastrointestinal: Soft and benign on palpation, active bowel sounds Musculoskeletal: No clubbing Neurological: Normal speech, Normal tone Vitals Reviewed Problem list Syncopal episode Frequent falls 2/2 generalized weakness Left hip pain Elevated D-dimer Cachectic Assessment and Plan Syncopal episode Frequent falls 2/2 generalized weakness Left hip pain Elevated D-dimer -Orthostatics Vitals: lying down BP159/70, HR 77, sitting BP148/72, HR 77, standing BP135/63, HR 85 -ECHO pending -Continuous telemetry -Troponin trended flat -consider Consult cardiology - Physical therapy- evaluation pending - Gentle IV fluid - Urine pending -keppra level pending Hypokalemia -Monitor in daily labs -replete PRN Cachectic - Patient reports decreased p.o. intake and losing weight in the past few months - Schedule protein shakes DVT PPx heparin Full code LOS 2 to 3 days Discharge Plan: Home Plan to discharge in: 72 Hours Time Spent Managing Pts Care (In Minutes): 38
[2024-09-18] MEDS: POTASSIUM CL SA 10 MEQ TAB PO ONE (11:27)
[2024-09-18] MEDS: MAGNESIUM SULFATE 1 gm IVPB 1 GM/100 ML BAG IV ONE (11:56)
[2024-09-18] MEDS: POTASS/SODIUM PHOSPHATE 1 PKT POWD.PACK PO SCH (11:57)
[2024-09-18] MEDS: NA CHLORIDE 0.9% 500 ML ONE (14:47)
[2024-09-18] MEDS: NA CHLORIDE 0.9% 500 ML IV ONE (15:01)
[2024-09-18] MEDS ORDERED: MIDODRINE HCL 5 MG TABLET PO PRN (15:37)
[2024-09-18] MEDS: POTASS/SODIUM PHOSPHATE 1 PKT POWD.PACK ONE (16:14)
[2024-09-18] MEDS: ATORVASTATIN 20 MG TAB PO SCH (21:03)
[2024-09-19 06:44] LABS: Absolute Lymphocytes (CBC) 1.2 K/uL (0.7-4.9); Hematocrit 28.4 % (36.0-45.0); Hemoglobin 9.7 g/dL (12.0-15.0); MCH 28.6 pg (27.0-35.0); MCHC 34.3 g/dL (32.0-36.0); MCV 83.5 fL (80-100); MPV 8.9 fL (7.6-11.3); Nucleated RBC Absolute Count 0.0 (0-0); Nucleated Red Blood Cells % 0.0 % (0-0); RBC Red Blood Cell Count 3.40 M/uL (3.86-4.86); White Blood Count 3.50 thou/uL (4.3-10.9)
[2024-09-19 06:57] LABS: Anion Gap 8.2 mEq/L (5.0-15.0); BUN Blood Urea Nitrogen 13.0 mg/dL (7-18); Glucose Level 100.0 mg/dL (74-106); Magnesium 2.0 mg/dL (1.6-2.4); Potassium 3.2 mEq/L (3.5-5.1)
[2024-09-19 07:11] LABS: Sqamous Epithelial None Seen /HPF (None Seen); Urine Crystals Unidentified Few /HPF (None Seen); Urine Culture Reflex Order NOT NEEDED; Urine Microscopic Reflex YN ORDER UMIC; Urine Yeast (Budding) Trace /HPF (None Seen)
[2024-09-19] MEDS: POTASS/SODIUM PHOSPHATE 1 PKT POWD.PACK PO SCH (08:10)
[2024-09-19] MEDS: POTASSIUM CL SA 10 MEQ TAB PO ONE (08:12)
--- NOTE | 2024-09-19 09:00 | ECHO ---
HEIGHT: 5 ft 2 in WEIGHT: 104 lb 3.2 oz DATE OF STUDY: 09/18/[address]: Melissa Cervantes NP 2-DIMENSIONAL: YES M.MODE: YES DOPPLER: YES COLOR FLOW: YES TDS: PORTABLE: YES DEFINITY: BUBBLE STUDY: DIAGNOSIS: FREQUENT FALLS CARDIAC HISTORY: CATHERIZATION: NO SURGERY: NO PROSTHETIC VALVE: NO PACEMAKER: NO MEASUREMENTS (cm) DIASTOLIC (NORMALS) SYSTOLIC (NORMALS) IVSd 1.1 (0.6-1.2) LA Diam 4.1 (1.9-4.0) LVEF 60-65% LVIDd 3.5 (3.5-5.7) LVIDs 2.4 (2.0-3.5) %FS 33% LVPWd 1.2 (0.6-1.2) Ao Diam 2.1 (2.0-3.7) 2 DIMENSIONAL ASSESSMENT: RIGHT ATRIUM: NORMAL LEFT ATRIUM: MILDLY DILATED RIGHT VENTRICLE: NORMAL LEFT VENTRICLE: NORMAL TRICUSPID VALVE: TRACE TRICUSPID REGURGITATION MITRAL VALVE: NORMAL PULMONIC VALVE: NORMAL AORTIC VALVE: NORMAL PERICARDIAL EFFUSION: NONE AORTIC ROOT: NORMAL LEFT VENTRICULAR WALL MOTION: NORMAL DOPPLER/COLOR FLOW: NORMAL COMMENTS: 1. NORMAL LEFT VENTRICULAR SYSTOLIC FUNCTION, EJECTION FRACTION 60-65%, NORMAL WALL MOTION 2. NORMAL DIASTOLIC FUNCTION 3. NORMAL FILLING PRESSURE TECHNOLOGIST: JAVIER STEARNS
--- NOTE | 2024-09-19 14:26 | P.PN ---
Date of Service: 09/19/24 Subjective Patient awake, alert stating her family member at bedside is trying to manipulate her/the situation Patient disoriented but speech is clear Family report that this has been going on for around 6 months but is been getting progressively worse No other acute events overnight ROS 10 point ROS as noted above, otherwise negative Physical Exam General: Alert and Oriented x2, confused, Cachectic, HEENT: Atraumatic Respiratory: Clear BBS Cardiovascular: RRR, S1 S2 present Gastrointestinal: Soft and benign on palpation, active bowel sounds Musculoskeletal: No clubbing Neurological: Normal speech, Normal tone Vitals Reviewed Problem list Syncopal episode Frequent falls 2/2 generalized weakness Left hip pain Elevated D-dimer Confusion/paranoid delusions, 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 Cachectic Assessment and Plan Syncopal episode Frequent falls 2/2 generalized weakness Left hip pain Elevated D-dimer -Orthostatics Vitals: lying down BP159/70, HR 77, sitting BP148/72, HR 77, standing BP135/63, HR 85 -ECHO normal -Continuous telemetry -Troponin trended flat -consider Consult cardiology -Working well with PT -Gentle IV fluid -Urine pending -keppra level pending Confusion/paranoid delusions Family reports this has been going on for around 6 months getting progressively worse in nature Seems to wax and wane Will consult psychiatry for additional input Continue home medications including Namenda Hypokalemia -Monitor in daily labs -replete PRN Cachectic - Patient reports decreased p.o. intake and losing weight in the past few months - Schedule protein shakes DVT PPx heparin Full code LOS 2 to 3 days Discharge Plan: SNF Plan to discharge in: 72 Hours Time Spent Managing Pts Care (In Minutes): 38
[2024-09-20 06:08] LABS: Absolute Lymphocytes (CBC) 1.0 K/uL (0.7-4.9); Hematocrit 28.0 % (36.0-45.0); Hemoglobin 9.8 g/dL (12.0-15.0); MCH 29.3 pg (27.0-35.0); MCHC 35.1 g/dL (32.0-36.0); MCV 83.7 fL (80-100); MPV 8.7 fL (7.6-11.3); Nucleated RBC Absolute Count 0.0 (0-0); Nucleated Red Blood Cells % 0.0 % (0-0); RBC Red Blood Cell Count 3.34 M/uL (3.86-4.86); White Blood Count 3.00 thou/uL (4.3-10.9)
[2024-09-20 06:30] LABS: Anion Gap 5.7 mEq/L (5.0-15.0); BUN Blood Urea Nitrogen 14.0 mg/dL (7-18); Glucose Level 95.0 mg/dL (74-106); Magnesium 2.1 mg/dL (1.6-2.4); Potassium 3.7 mEq/L (3.5-5.1)
--- NOTE | 2024-09-20 08:53 | P.PN ---
Date of Service: 09/20/24 Subjective Patient less agitated so far this morning Family at bedside Seen by psychiatry yesterday with med recommendations No other acute events overnight ROS 10 point ROS as noted above, otherwise negative Physical Exam General: Alert and Oriented x2, confused, Cachectic, HEENT: Atraumatic Respiratory: Clear BBS Cardiovascular: RRR, S1 S2 present Gastrointestinal: Soft and benign on palpation, active bowel sounds Musculoskeletal: No clubbing Neurological: Normal speech, Normal tone Vitals Reviewed Problem list Syncopal episode Frequent falls 2/2 generalized weakness Left hip pain Elevated D-dimer Confusion/paranoid delusions, 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 Cachectic Assessment and Plan Syncopal episode Frequent falls 2/2 generalized weakness Left hip pain Elevated D-dimer -Orthostatics Vitals: lying down BP159/70, HR 77, sitting BP148/72, HR 77, s tanding BP135/63, HR 85 Some orthostatic symptoms working with PT, dizziness when standing -ECHO normal -Continuous telemetry -Troponin trended flat -consider Consult cardiology -Working well with PT Complaints of left hip pain/leg pain Will obtain CT of the lumbar spine to rule out any spinal involvement Confusion/paranoid delusions Family reports this has been going on for around 6 months getting progressively worse in nature Seems to wax and wane Discussed with psychiatry the following med changes will be made today Discontinue BuSpar Start Abilify 2.5 mg daily Start trazodone 25 mg at bedtime as needed Neurology consultation UA negative for UTI Hypokalemia -Monitor in daily labs -replete PRN Cachectic - Patient reports decreased p.o. intake and losing weight in the past few months - Schedule protein shakes DVT PPx heparin Full code LOS 2 to 3 days Discharge Plan: SNF Plan to discharge in: 72 Hours Time Spent Managing Pts Care (In Minutes): 38
[2024-09-20] MEDS: ARIPiprazole 5 MG TAB PO SCH (10:03)
[2024-09-20] MEDS: POTASSIUM CL SA 10 MEQ TAB PO ONE (10:05)
--- NOTE | 2024-09-20 11:03 | RAD REPORT ---
EXAMINATION: CT LUMBAR SPINE WITHOUT CONTRAST CLINICAL INDICATION: Female, 83 years old. Severe LLE pain, immobility. TECHNIQUE: Axial CT images were obtained through the lumbar spine in soft tissue and bone windows wit hout intravenous contrast. Coronal and Sagittal reformatted images were created from the data set. One or more of the following dose reduction techniques were used: Automated exposure control, adjustm ent of the mA and/ or kV according to patient size, and/or iterative reconstruction. Unless otherwise specified, incidental findings do not require dedicated imaging follow-up. COMPARISON: No prior exam. FINDINGS: For purposes of this dictation, it is assumed that there are 5 non rib-bearing lumbar type vertebrae, and the most caudal fully segmented lumbar vertebra is labeled L5. ALIGNMENT: 5 mm degenerative anterolisthesis of L4 on 5. Mild levoscoliosis. BONES: No significant soft tissue abnormalities. No aggressive osseous lesions. DISCS: Partially calcified disc bulging is present L3-4, L4-5 and L5-S1. LEVELS: Moderate to significant canal stenosis suspected at L4-5. Mild central canal stenosis and lef t lateral recess stenosis L5-S1. SOFT TISSUE: No soft tissue abnormalities. IMPRESSION: No acute lumbar spine abnormalities. Moderate lower lumbar spondylosis most notable at L4-5 and L5-S1.
[2024-09-21] MEDS: MORPHINE 2 MG/ML SYR IV PRN (02:51)
[2024-09-21] MEDS: ONDANSETRON 4 MG/2 ML VIAL IV PRN (02:51)
--- NOTE | 2024-09-21 03:10 | CON ---
Reason For Consultation: Consultation was called because the patient had frequent falls and possible black out episodes. History Of Present Illness: She came to the hospital on 09/16/2024 reportedly after a fall at home. She listed her falls without warning, sudden unconsciousness, perhaps about 30 seconds. She was rep ortedly caught by her son who laid her on the floor and then emergency medical service were called. She previously had a left hip surgery. She said in terms of the fall, she was actually going to visi t her grandson when she missed a step and her son caught her. She at [facility] was imaged for intracerebral abnormalities and CT scan of the head, which showed no acute ischemic hemorrhagic c hanges. Chest and thorax angiogram, no pulmonary embolus. The pelvic CT scan showed no acute abnorm alities in the bony pelvis and lumbar spine CT scan done earlier today showed no acute lumbar spine a bnormalities. Moderate lower lumbar spondylosis notable at L4-5 and L5-S1. Echocardiogram done ____ ago showing ejection fraction 60% to 65% and a normal study. No pressures. She had an EEG do ne today showed just slightly slow frontal activity. Otherwise, EEG is within normal she has had no epileptiform activity in this study. Past Medical History: The hip fracture and surgery, dyslipidemia, hypertension, reported potential s eizures. She has dementia, orthostatic hypotension, along with hypertension and depression. Medications: Diovan 160 mg daily, trazodone 25 mg at bedtime, Mylicon 80 mg every 6 hours, Zoloft 10 0 mg daily, Zofran as needed 4 mg, midodrine 5 mg 3 times daily as needed, Namenda 20 mg at bedtime, Keppra 250 mg twice daily. She is Apresoline 10 mg every 4 hours as needed; heparin 5000 units subcu daily hours; gabapentin 100 mg twice daily; Lipitor 20 mg on Wednesday, Wednesday, and Wednesday; aspirin 81 mg daily; Abilify 2.5 mg daily; Norvasc 5 mg twice daily; and Tylenol 650 mg every 6 hours as need ed. Laboratory Studies: White blood cell count is 3.0, hemoglobin 9.8, platelets 120. Her D-dimer was 15.4. Sodium 140, potassium 3.7, chloride 110, carbon dioxide 28, BUN is 14, creatinine 0. 96, glucose 95, calcium 9.5. Phosphorus 3.2, magnesium 2.1. TSH 1.21, free T4 of 0.88, LDL choleste rol 41, HDL 58, total cholesterol 119, cholesterol HDL ratio 2.05. Urinalysis 7.5 pH, tur bid clarity, trace budding yeast, trace total protein otherwise unremarkable. Her Keppra level on was 15.6. Family History: Noncontributory. Social History: No alcohol, tobacco, or IV drug use. Allergies: NO KNOWN DRUG ALLERGIES. Physical Examination: Vital Signs: Blood pressure 161/73, pulse 79, respiratory rate 18, temperature 98.2, oxygen saturati on 98%. She had orthostatic vitals done on the and those were negative. HEENT: She is otherwise normocephalic, atraumatic. Sclerae anicteric. Oropharynx pink, moist. Neck: Supple. Chest: Clear. Heart: Regular. Neuro: She is intact in terms of cognitive functioning, answering questions appropriately, and gives coherent story about what happened. She has no focal neurological deficits. Cranial nerves, motor, coordination, sensory testing are intact. Assessment And Plan: Ms. Carlton is an 83-year-old patient with syncope of unclear etiology, althou gh cardiogenic is running along with neurogenic causes. She had an EEG, which showed mildly slow act ivity in the front, but no epileptiform activity. She has no evidence of a stroke . No ev idence of any infection. She may benefit after discharge from a prolonged ambulatory video EEG monit oring study to rule out the possibility of interictal activity or to characterize it with respect to possibility of seizures. However, at this point, patient is doing excellent and is ready for discharge home. She is to follow up in Dr. Garvey's clinic within a month after discharge. Please note that the until she is seen in clinic and may consider slowly tapering medication. JOVANA/ADRIAL Voice ID: [id number] Report ID: [id number]
[2024-09-21 05:37] LABS: Absolute Lymphocytes (CBC) 0.9 K/uL (0.7-4.9); Hematocrit 30.3 % (36.0-45.0); Hemoglobin 10.2 g/dL (12.0-15.0); MCH 28.5 pg (27.0-35.0); MCHC 33.8 g/dL (32.0-36.0); MCV 84.3 fL (80-100); MPV 8.7 fL (7.6-11.3); Nucleated RBC Absolute Count 0.0 (0-0); Nucleated Red Blood Cells % 0.1 % (0-0); RBC Red Blood Cell Count 3.60 M/uL (3.86-4.86); White Blood Count 3.00 thou/uL (4.3-10.9)
[2024-09-21] MEDS: HYDROCODONE/APAP 5/325 MG TAB PO PRN (05:55)
[2024-09-21 05:56] LABS: Anion Gap 7.6 mEq/L (5.0-15.0); BUN Blood Urea Nitrogen 15.0 mg/dL (7-18); Glucose Level 96.0 mg/dL (74-106); Magnesium 1.9 mg/dL (1.6-2.4); Potassium 3.6 mEq/L (3.5-5.1)
[2024-09-21] MEDS: POTASSIUM CL SA 10 MEQ TAB PO ONE (09:31)
--- NOTE | 2024-09-21 11:11 | RAD REPORT ---
Exam:Knee Left 3 View HISTORY: Left knee pain FINDINGS: No fracture or dislocation seen Bones are osteoporotic. No significant osteoarthritis seen.
--- NOTE | 2024-09-21 13:33 | P.PN ---
Date of Service: 09/21/24 Subjective Still persistent left lower extremity pain Mental status improved still periodically confused No other acute events overnight ROS 10 point ROS as noted above, otherwise negative Physical Exam General: Alert and Oriented x2, confused, Cachectic, HEENT: Atraumatic Respiratory: Clear BBS Cardiovascular: RRR, S1 S2 present Gastrointestinal: Soft and benign on palpation, active bowel sounds Musculoskeletal: No clubbing Neurological: Normal speech, Normal tone Vitals Reviewed Problem list Syncopal episode Frequent falls 2/2 generalized weakness Left hip pain Elevated D-dimer Confusion/paranoid delusions, 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 Cachectic Assessment and Plan Syncopal episode Frequent falls 2/2 generalized weakness Left hip pain Elevated D-dimer -Orthostatics Vitals: lying down BP159/70, HR 77, sitting BP148/72, HR 77, standing BP135/63, HR 85 Some orthostatic symptoms working with PT, dizziness when standing -ECHO normal -EEG without epileptiform findings -Troponin trended flat -Working well with PT Complaints of left hip pain/leg pain CT lumbar spine without acute findings, some mild stenosis which may be contributing to left lower extremity pain X-ray of the left knee obtained as CT only saw the proximal femur, x-ray without any sign of fracture Visible muscle spasms present in left lower extremity when flexed Continue PT, as needed pain medications Confusion/paranoid delusions Family reports this has been going on for around 6 months getting progressively worse in nature Seems to wax and wane Discussed with psychiatry the following med changes will be made today Discontinue BuSpar Start Abilify 2.5 mg daily Start trazodone 25 mg at bedtime as needed Neurology consultation Neurology has seen the patient, recommends continuation of current regimen Outpatient follow-up with neurology to arrange for ambulatory video EEG UA negative for UTI Hypokalemia -Monitor in daily labs -replete PRN Cachectic - Patient reports decreased p.o. intake and losing weight in the past few months - Schedule protein shakes DVT PPx heparin Full code LOS 2 to 3 days Discharge Plan: SNF Plan to discharge in: 72 Hours Time Spent Managing Pts Care (In Minutes): 38
--- NOTE | 2024-09-21 14:09 | EEG ---
CHART: [id number] TEST ID#: [id number] DATE OF STUDY: 09-20-2024 THE EEG WAS RECORDED PORTABLE IN THE PATIENT'S ROOM ON A 17 CHANNEL MACHINE. ELECTRODES WERE APPLIED IN THE USUAL MANNER USING THE INTERNATIONAL 10-20 SYSTEM. THE WAKING BACKGROUND RHYTHM IN THIS RECORD CONSISTS OF FAIRLY WELL DEVELOPED AND FAIRLY WELL ORGANIZED WAVES OF 8.5 HZ., MAXIMAL IN THE POSTERIOR HEAD REGIONS WHICH ATTENUATE NORMALLY WITH EYE OPENING. LOW-VOLTAGE 18-22 HZ ACTIVITY IS EXPRESSED IN THE FRONTAL REGIONS. MODERATE VOLTAGE 1.5-3 HZ ACTIVITY IS OCCASIONALLY EXPRESSED IN THE FRONTAL REGIONS. THERE ARE NO FOCAL OR LATERALIZING FEATURES. NO EPILEPTIFORM ACTIVITY APPEARS. SLEEP OCCURRED NATURALLY. IN ADDITION TO NORMAL SLEEP PATTERNS ARE PRESENT. HYPERVENTILATION WAS NOT PERFORMED. PHOTIC STIMULATION PRODUCED POOR DRIVING BILATERALLY. IMPRESSION: THIS IS A MILDLY ABNORMAL AWAKE AND ASLEEP ROUTINE EEG DUE TO OCCASIONAL FRONTAL (DELTA) ACTIVITY. THIS IS A NON-SPECIFIC FINDING INDICATING THE PRESNECE OF A MILD DIFFUSE DISTURBANCE IN CEREBRAL FUNCTION.
[2024-09-22] MEDS: PIPER TAZO 3.375 GM in NA CHLORIDE 0.9% 100 ML IV ONE (01:48)
[2024-09-22 04:32] LABS: Absolute Lymphocytes (CBC) 1.3 K/uL (0.7-4.9); Hematocrit 27.9 % (36.0-45.0); Hemoglobin 9.6 g/dL (12.0-15.0); MCH 29.0 pg (27.0-35.0); MCHC 34.3 g/dL (32.0-36.0); MCV 84.6 fL (80-100); MPV 8.6 fL (7.6-11.3); Nucleated RBC Absolute Count 0.0 (0-0); Nucleated Red Blood Cells % 0.2 % (0-0); RBC Red Blood Cell Count 3.30 M/uL (3.86-4.86); White Blood Count 3.90 thou/uL (4.3-10.9)
[2024-09-22 04:47] LABS: Anion Gap 6.8 mEq/L (5.0-15.0); BUN Blood Urea Nitrogen 22.0 mg/dL (7-18); Glucose Level 102.0 mg/dL (74-106); Magnesium 2.0 mg/dL (1.6-2.4); Potassium 3.8 mEq/L (3.5-5.1)
--- NOTE | 2024-09-22 06:08 | RAD REPORT ---
XR CHEST 1 VIEW CLINICAL INDICATION: Elevated temperature COMPARISON: None FINDINGS: SUPPORT DEVICES: None LUNGS/PLEURAL SPACES: Bilateral perihilar and basilar interstitial opacities could represent vascular congestion, interstitial edema, subsegmental atelectasis and/or infiltrates. No pleural effusion. No pneumothorax. HEART/MEDIASTINUM: Heart is normal in size. Atherosclerotic calcification at aortic arch. BONES/UPPER ABDOMEN/SOFT TISSUES: No acute findings. There is elevation of right hemidiaphragm. IMPRESSION: Bilateral perihilar and basilar interstitial opacities could represent vascular congestion, interstit ial edema, subsegmental atelectasis and/or infiltrates. Electronically signed by: Suzette Chopra MD 09/22/2024 03:50 AM CDT RP Due to temporary technical issues with the PACS/[employer] reporting system, reports are being jennifer d by the in-house radiologist without review as a courtesy to ensure prompt reporting the interpreting radiologist is fully responsible for the content of the report. Transcribed Date/Time: 09/22/2024 6:08 AM
[2024-09-22 06:14] LABS: Sqamous Epithelial None Seen /HPF (None Seen); Urine Culture Reflex Order NOT NEEDED; Urine Microscopic Reflex YN ORDER UMIC
[2024-09-22] MEDS: CEFTRIAXONE 1,000 MG in NA CHLORIDE 0.9% 50 ML IVPB SCH (09:32)
[2024-09-22] MEDS: NA CHLORIDE 0.9% 1,000 ML IV SCH (09:33)
[2024-09-22] MEDS: POTASSIUM CL SA 10 MEQ TAB PO ONE (09:34)
[2024-09-22 10:45] LABS: Influenza A Ag Negative; Influenza B Ag Negative; SARS-CoV-2 Antigen Rapid Res Negative (Negative)
[2024-09-22] MEDS: DOXYCYCLINE 100 MG in NA CHLORIDE 0.9% 100 ML IVPB SCH (10:46)
--- NOTE | 2024-09-22 12:57 | P.PN ---
Date of Service: 09/22/24 Subjective Still persistent left lower extremity pain Mental status improved still periodically confused Now running fevers that started overnight ROS 10 point ROS as noted above, otherwise negative Physical Exam General: Alert and Oriented x2, confused, Cachectic, HEENT: Atraumatic Respiratory: Clear BBS Cardiovascular: RRR, S1 S2 present Gastrointestinal: Soft and benign on palpation, active bowel sounds Musculoskeletal: No clubbing Neurological: Normal speech, Normal tone Vitals Reviewed Problem list Syncopal episode Frequent falls 2/2 generalized weakness Left hip pain Elevated D-dimer Fever/Pneumonia vs LUE cellulitis Confusion/paranoid delusions, 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 Cachectic Assessment and Plan Syncopal episode Frequent falls 2/2 generalized weakness Left hip pain Elevated D-dimer -Orthostatics Vitals: lying down BP159/70, HR 77, sitting BP148/72, HR 77, standing BP135/63, HR 85 Some orthostatic symptoms working with PT, dizziness when standing -ECHO normal -EEG without epileptiform findings -Troponin trended flat -Working well with PT Complaints of left hip pain/leg pain CT lumbar spine without acute findings, some mild stenosis which may be contributing to left lower extremity pain X-ray of the left knee obtained as CT only saw the proximal femur, x-ray without any sign of fracture Visible muscle spasms present in left lower extremity when flexed Continue PT, as needed pain medications Fever/Pneumonia vs LUE cellulitis Patient developed fevers overnight UA not concerning for urinary tract infection Chest x-ray bilateral opacities, possible pneumonia versus pulmonary vascular congestion Additionally small area of erythema around previous IV site to the left upper extremity in the AC area Blood cultures were obtained, lactate is less than 2 White blood cell count not elevated Will provide antibiotic coverage with Rocephin and doxycycline IV Confusion/paranoid delusions Family reports this has been going on for around 6 months getting progressively worse in nature Seems to wax and wane Discussed with psychiatry the following med changes will be made today Discontinue BuSpar Start Abilify 2.5 mg daily Start trazodone 25 mg at bedtime as needed Neurology consultation Neurology has seen the patient, recommends continuation of current regimen Outpatient follow-up with neurology to arrange for ambulatory video EEG UA negative for UTI Hypokalemia -Monitor in daily labs -replete PRN Cachectic - Patient reports decreased p.o. intake and losing weight in the past few months - Schedule protein shakes DVT PPx heparin Full code LOS 2 to 3 days Discharge Plan: SNF Plan to discharge in: 72 Hours Time Spent Managing Pts Care (In Minutes): 38
[2024-09-22] MEDS: TRAZODONE 50 MG TABLET PO PRN (20:23)
[2024-09-22] MEDS: ENSURE ENLIVE 237 ML CAN PO SCH (20:23)
[2024-09-23] MEDS: LORazepam 2 MG/ML VIAL IV ONE (00:28)
[2024-09-23] MEDS: NA CHLORIDE 0.9% 500 ML IV SCH (01:11)
[2024-09-23 07:13] LABS: Absolute Lymphocytes (CBC) 0.9 K/uL (0.7-4.9); Hematocrit 22.8 % (36.0-45.0); Hemoglobin 7.9 g/dL (12.0-15.0); MCH 28.8 pg (27.0-35.0); MCHC 34.6 g/dL (32.0-36.0); MCV 83.1 fL (80-100); MPV 8.6 fL (7.6-11.3); Nucleated RBC Absolute Count 0.0 (0-0); Nucleated Red Blood Cells % 0.1 % (0-0); RBC Red Blood Cell Count 2.74 M/uL (3.86-4.86); White Blood Count 2.90 thou/uL (4.3-10.9)
[2024-09-23 07:20] LABS: Anion Gap 9.6 mEq/L (5.0-15.0); BUN Blood Urea Nitrogen 22.0 mg/dL (7-18); Glucose Level 94.0 mg/dL (74-106); Magnesium 1.9 mg/dL (1.6-2.4); Potassium 3.6 mEq/L (3.5-5.1)
[2024-09-23] MEDS: POTASS/SODIUM PHOSPHATE 1 PKT POWD.PACK PO SCH (09:04)
--- NOTE | 2024-09-23 09:40 | P.PN ---
Date of Service: 09/23/24 Subjective Insomnia overnight, trazodone 25 mg did not work Received Ativan for anxiety, had no adverse reaction with tremors Eventually got to sleep Still running low-grade fevers Hemoglobin dropped this morning ROS 10 point ROS as noted above, otherwise negative Physical Exam General: Alert and Oriented x2, confused, Cachectic, HEENT: Atraumatic Respiratory: Clear BBS Cardiovascular: RRR, S1 S2 present Gastrointestinal: Soft and benign on palpation, active bowel sounds Musculoskeletal: No clubbing Neurological: Normal speech, Normal tone Vitals Reviewed Problem list Syncopal episode Frequent falls 2/2 generalized weakness Left hip pain Elevated D-dimer Fever/Pneumonia vs LUE cellulitis Confusion/paranoid delusions, 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 Cachectic Assessment and Plan Syncopal episode Frequent falls 2/2 generalized weakness Left hip pain Elevated D-dimer -Orthostatics Vitals: lying down BP159/70, HR 77, sitting BP148/72, HR 77, standing BP135/63, HR 85 Some orthostatic symptoms working with PT, dizziness when standing -ECHO normal -EEG without epileptiform findings -Troponin trended flat -Working well with PT Complaints of left hip pain/leg pain CT lumbar spine without acute findings, some mild stenosis which may be contributing to left lower extremity pain X-ray of the left knee obtained as CT only saw the proximal femur, x-ray without any sign of fracture Visible muscle spasms present in left lower extremity when flexed Continue PT, as needed pain medications Fever/Pneumonia vs LUE cellulitis Patient developed fevers UA not concerning for urinary tract infection Chest x-ray bilateral opacities, possible pneumonia versus pulmonary vascular congestion Additionally small area of erythema around previous IV site to the left upper extremity in the AC area Blood cultures with no growth in 24 hours, lactate is less than 2 White blood cell count not elevated Will provide antibiotic coverage with Rocephin and doxycycline IV Confusion/paranoid delusions Family reports this has been going on for around 6 months getting progressively worse in nature Seems to wax and wane Discussed with psychiatry the following med changes will be made today Discontinue BuSpar Start Abilify 2.5 mg daily Start trazodone 25 mg at bedtime as needed Trazodone increased to 50 mg at bedtime Neurology consultation Neurology has seen the patient, recommends continuation of current regimen Outpatient follow-up with neurology to arrange for ambulatory video EEG UA negative for UTI Hypokalemia -Monitor in daily labs -replete PRN Cachectic - Patient reports decreased p.o. intake and losing weight in the past few months - Schedule protein shakes DVT PPx heparin Full code LOS 2 to 3 days Discharge Plan: SNF Plan to discharge in: 72 Hours Time Spent Managing Pts Care (In Minutes): 38
[2024-09-23 10:04] LABS: White Blood Cell Scan OK (OK)
[2024-09-23 10:05] LABS: Blood Morphology Comment NOT SEEN (NOT SEEN)
[2024-09-23 11:14] LABS: Hematocrit 25.4 % (36.0-45.0); Hemoglobin 8.3 g/dL (12.0-15.0); MCH 28.1 pg (27.0-35.0); MCHC 32.8 g/dL (32.0-36.0); MCV 85.9 fL (80-100); MPV 8.5 fL (7.6-11.3); RBC Red Blood Cell Count 2.96 M/uL (3.86-4.86); White Blood Count 3.20 thou/uL (4.3-10.9)
[2024-09-23 11:30] LABS: Ferritin 141.8 ng/mL (8-252); Iron 19.0 ug/dL (50-170); Transferrin 124.0 mg/dL (200-360)
[2024-09-23] MEDS: TRAZODONE 50 MG TABLET PO PRN (20:52)
[2024-09-23] MEDS: DONEPEZIL HCL 5 MG TAB PO SCH (20:53)
[2024-09-23 23:21] VITALS: BMI 18.1
[2024-09-24 06:57] LABS: Hematocrit 26.7 % (36.0-45.0); Hemoglobin 9.1 g/dL (12.0-15.0); MCH 28.6 pg (27.0-35.0); MCHC 34.1 g/dL (32.0-36.0); MCV 83.9 fL (80-100); MPV 8.7 fL (7.6-11.3); RBC Red Blood Cell Count 3.18 M/uL (3.86-4.86); White Blood Count 3.60 thou/uL (4.3-10.9)
[2024-09-24 07:04] LABS: Anion Gap 10.2 mEq/L (5.0-15.0); BUN Blood Urea Nitrogen 19.0 mg/dL (7-18); Glucose Level 88.0 mg/dL (74-106); Potassium 3.2 mEq/L (3.5-5.1)
[2024-09-24 07:05] LABS: Magnesium 1.7 mg/dL (1.6-2.4)
--- NOTE | 2024-09-24 09:23 | P.PN ---
Date of Service: 09/24/24 Subjective Insomnia overnight, trazodone 50mg did not help poor sleep, confusion noted today Fever curve improving ROS 10 point ROS as noted above, otherwise negative Physical Exam General: Alert and Oriented x2, confused, Cachectic, HEENT: Atraumatic Respiratory: Clear BBS Cardiovascular: RRR, S1 S2 present Gastrointestinal: Soft and benign on palpation, active bowel sounds Musculoskeletal: No clubbing Neurological: Normal speech, Normal tone Vitals Reviewed Problem list Syncopal episode Frequent falls 2/2 generalized weakness Left hip pain Elevated D-dimer Fever/Pneumonia vs LUE cellulitis Confusion/paranoid delusions with underlying dementia Cachectic Assessment and Plan Syncopal episode Frequent falls 2/2 generalized weakness Left hip pain Elevated D-dimer -Orthostatics Vitals: lying down BP159/70, HR 77, sitting BP148/72, HR 77, standing BP135/63, HR 85 Some orthostatic symptoms working with PT, dizziness when standing -ECHO normal -EEG without epileptiform findings -Troponin trended flat -Working well with PT Complaints of left hip pain/leg pain CT lumbar spine without acute findings, some mild stenosis which may be contributing to left lower extremity pain X-ray of the left knee obtained as CT only saw the proximal femur, x-ray without any sign of fracture Visible muscle spasms present in left lower extremity when flexed Continue PT, as needed pain medications Fever/Pneumonia vs LUE cellulitis Patient developed fevers-improving UA not concerning for urinary tract infection Chest x-ray bilateral opacities, possible pneumonia versus pulmonary vascular congestion Additionally small area of erythema around previous IV site to the left upper extremity in the AC area Blood cultures with no growth in 24 hours, lactate is less than 2 White blood cell count not elevated Will provide antibiotic coverage with Rocephin and doxycycline IV Confusion/paranoid delusions with underlying dementia Family reports this has been going on for around 6 months getting progressively worse in nature Seems to wax and wane Discussed with psychiatry the following med changes will be made today Discontinue BuSpar Start Abilify 2.5 mg daily Start trazodone 25 mg at bedtime as needed Trazodone increased to 50 mg at bedtime Neurology consultation Neurology has seen the patient, recommends continuation of current regimen Outpatient follow-up with neurology to arrange for ambulatory video EEG UA negative for UTI Hypokalemia -Monitor in daily labs -replete PRN Cachectic - Patient reports decreased p.o. intake and losing weight in the past few months - Schedule protein shakes DVT PPx heparin Full code LOS 2 to 3 days Discharge Plan: SNF Plan to discharge in: 72 Hours Time Spent Managing Pts Care (In Minutes): 38
[2024-09-24] MEDS: POTASSIUM CL SA 10 MEQ TAB PO ONE ×3 (13:14→22:58)
[2024-09-24] MEDS: Magnesium Sulfate 2gm IVPB 2 G/50 ML BAG IV ONE (13:14)
[2024-09-24] MEDS: MELATONIN 5 MG TABLET PO SCH (21:00)
[2024-09-25 00:35] VITALS: O2SAT 96
[2024-09-25 06:27] LABS: Hematocrit 28.9 % (36.0-45.0); Hemoglobin 9.9 g/dL (12.0-15.0); MCH 28.9 pg (27.0-35.0); MCHC 34.4 g/dL (32.0-36.0); MCV 84.2 fL (80-100); MPV 7.9 fL (7.6-11.3); RBC Red Blood Cell Count 3.43 M/uL (3.86-4.86); White Blood Count 3.60 thou/uL (4.3-10.9)
[2024-09-25 06:48] LABS: Anion Gap 8.4 mEq/L (5.0-15.0); BUN Blood Urea Nitrogen 14.0 mg/dL (7-18); Glucose Level 99.0 mg/dL (74-106); Magnesium 2.0 mg/dL (1.6-2.4); Potassium 3.4 mEq/L (3.5-5.1)
--- NOTE | 2024-09-25 09:57 | P.PN ---
Date of Service: 09/25/24 Subjective Slept better last night with melatonin and trazodone Awake, confused, restless this morning No other acute events overnight ROS 10 point ROS as noted above, otherwise negative Physical Exam General: Alert and Oriented x2, confused, Cachectic, HEENT: Atraumatic Respiratory: Clear BBS Cardiovascular: RRR, S1 S2 present Gastrointestinal: Soft and benign on palpation, active bowel sounds Musculoskeletal: No clubbing Neurological: Normal speech, Normal tone Vitals Reviewed Problem list Syncopal episode Frequent falls 2/2 generalized weakness Left hip pain Elevated D-dimer Fever/Pneumonia vs LUE cellulitis Confusion/paranoid delusions with underlying dementia Cachectic Assessment and Plan Syncopal episode Frequent falls 2/2 generalized weakness Left hip pain Elevated D-dimer -Orthostatics Vitals: lying down BP159/70, HR 77, sitting BP148/72, HR 77, standing BP135/63, HR 85 Some orthostatic symptoms working with PT, dizziness when standing -ECHO normal -EEG without epileptiform findings -Troponin trended flat -Working well with PT Complaints of left hip pain/leg pain CT lumbar spine without acute findings, some mild stenosis which may be contributing to left lower extremity pain X-ray of the left knee obtained as CT only saw the proximal femur, x-ray without any sign of fracture Visible muscle spasms present in left lower extremity when flexed Continue PT, as needed pain medications Fever/Pneumonia vs LUE cellulitis Patient developed fevers-improving UA not concerning for urinary tract infection Chest x-ray bilateral opacities, possible pneumonia versus pulmonary vascular congestion Additionally small area of erythema around previous IV site to the left upper extremity in the AC area Blood cultures with no growth in 24 hours, lactate is less than 2 White blood cell count not elevated Will provide antibiotic coverage with Rocephin and doxycycline IV Left upper extremity IV catheter was removed and the catheter tip was sent for culture given erythema and apparent purulent drainage Catheter removed and sent for culture on 09/21 returned today with MRSA Patient improving and fever trend improving with Rocephin and doxycycline, blood cultures are negative Confusion/paranoid delusions with underlying dementia Family reports this has been going on for around 6 months getting progressively worse in nature Seems to wax and wane, some days are better than others Throughout hospitalization has been confused, restless periodically Discussed with psychiatry the following med changes will be made today Discontinue BuSpar Start Abilify 2.5 mg daily Start trazodone 25 mg at bedtime as needed Trazodone increased to 50 mg at bedtime Neurology consultation Neurology has seen the patient, recommends continuation of current regimen Outpatient follow-up with neurology to arrange for ambulatory video EEG UA negative for UTI Hypokalemia -Monitor in daily labs -replete PRN Cachectic - Patient reports decreased p.o. intake and losing weight in the past few months - Schedule protein shakes DVT PPx heparin Full code LOS 2 to 3 days Discharge Plan: SNF Plan to discharge in: 72 Hours Time Spent Managing Pts Care (In Minutes): 38
[2024-09-25] MEDS: POTASSIUM CL SA 10 MEQ TAB PO ONE (10:23)
[2024-09-25] MEDS: DONEPEZIL HCL 5 MG TAB PO SCH (10:24)
[2024-09-26 05:02] LABS: Hematocrit 25.2 % (36.0-45.0); Hemoglobin 8.8 g/dL (12.0-15.0); MCH 28.9 pg (27.0-35.0); MCHC 34.9 g/dL (32.0-36.0); MCV 82.8 fL (80-100); MPV 7.5 fL (7.6-11.3); RBC Red Blood Cell Count 3.05 M/uL (3.86-4.86); White Blood Count 4.00 thou/uL (4.3-10.9)
[2024-09-26 05:18] LABS: Anion Gap 7.1 mEq/L (5.0-15.0); BUN Blood Urea Nitrogen 17.0 mg/dL (7-18); Glucose Level 101.0 mg/dL (74-106); Magnesium 1.9 mg/dL (1.6-2.4); Potassium 4.1 mEq/L (3.5-5.1)
--- NOTE | 2024-09-26 20:48 | P.PN ---
Date of Service: 09/26/24 Subjective Some confusion, but patient states she feels confused Son at the bedside who plans to travel 4 hours to help her move in at SNF ROS 10 point ROS as noted above, otherwise negative Physical Exam General: Awake, alert, confused HEENT: Atraumatic Respiratory: Clear BBS, on room air Cardiovascular: RRR, S1 S2 present Gastrointestinal: Soft on palpation, active bowel sounds Musculoskeletal: No clubbing Neurological: Normal speech, Normal tone Vitals Reviewed Problem list Syncopal episode Frequent falls 2/2 generalized weakness Left hip pain Elevated D-dimer Fever/Pneumonia vs LUE cellulitis Confusion/paranoid delusions with underlying dementia Cachectic Assessment and Plan Syncopal episode Frequent falls 2/2 generalized weakness Left hip pain Elevated D-dimer Catheter infection of MRSA Orthostatics Vitals: lying down BP159/70, HR 77, sitting BP148/72, HR 77, standing BP135/63, HR 85 Some orthostatic symptoms working with PT, dizziness when standing ECHO normal EEG without epileptiform findings Troponin trended flat Working well with PT Complaints of left hip pain/leg pain CT lumbar spine without acute findings, some mild stenosis which may be contributing to left lower extremity pain X-ray of the left knee obtained as CT only saw the proximal femur, x-ray without any sign of fracture Visible muscle spasms present in left lower extremity when flexed Continue PT, as needed pain medications Blood cultures are negative Infectious disease consulted, recommend continued antibiotics for 2 weeks Fever/Pneumonia vs LUE cellulitis Patient developed fevers-improving UA not concerning for urinary tract infection Chest x-ray bilateral opacities, possible pneumonia versus pulmonary vascular congestion Additionally small area of erythema around previous IV site to the left upper extremity in the AC area Blood cultures with no growth in 24 hours, lactate is less than 2 White blood cell count not elevated Will provide antibiotic coverage with Rocephin and doxycycline IV Left upper extremity IV catheter was removed and the catheter tip was sent for culture given erythema and apparent purulent drainage Catheter removed and sent for culture on 09/21 returned today with MRSA Patient improving and fever trend improving with Rocephin and doxycycline, blood cultures are negative Confusion/paranoid delusions with underlying dementia Family reports this has been going on for around 6 months getting progressively worse in nature Seems to wax and wane, some days are better than others Throughout hospitalization has been confused, restless periodically Discussed with psychiatry the following med changes will be made today Discontinue BuSpar Start Abilify 2.5 mg daily Stopped trazodone 25 mg d/t continued confusion Neurology consultation Neurology has seen the patient, recommends continuation of current regimen Outpatient follow-up with neurology to arrange for ambulatory video EEG UA negative for UTI Hypokalemia Monitor in daily labs replete PRN Cachectic Patient reports decreased p.o. intake and losing weight in the past few months Schedule protein shakes DVT PPx heparin Full code LOS 2 to 3 days Discharge Plan: SNF Plan to discharge in: 72 Hours Time Spent Managing Pts Care (In Minutes): 40
--- NOTE | 2024-09-26 22:35 | CON ---
History Of Present Illness: I was consulted for catheter tip MRSA infection. The patient is currently being treated with Rocephin and doxycycline. The patient has significant past medical history of fall at home. Prior to coming to the hospital, the patient was unconscious for 30 seconds. During hospitalization, she was also thought to have left upper extremity cellulitis versus fever and pneumonia, underlying dementia with paranoid delusion. The patient is currently getting Rocephin and doxycycline. Her catheter-tip culture grew MRSA. Blood cultures done on 09/21 showed no growth for 3 days. The patient denies any headache, nausea, vomiting, chest pain, abdominal pain, constipation, or diarrhea. Past Medical History: As per HPI. Social History: Nonsmoker, nondrinker. Family History: Noncontributory. Medications: Doxycycline, Rocephin. See MARs for other medications. Allergies: LORAZEPAM. Review of Systems: A 10-point review was performed. Physical Examination: General: This is an 83-year-old female, lying in bed, not in any acute cardiopulmonary distress. Vital Signs: Temperature 98, pulse 86, respirations 16, blood pressure 151/70. HEENT: Unremarkable. Neck: Supple. Lungs: Basal crackles. Heart: S1, S2. Regular. Abdomen: Soft, nontender. Bowel sounds present. Extremities: No edema. Laboratory Data: Shows WBC 3.2, hemoglobin 8.3, platelets 117, BUN of 22, creatinine 1.2. Her influenza and SARS are negative. Chest x-ray done yesterday. Chest x-ray done on shows bilateral perihilar basilar interstitial opacities with differential diagnosis of interstitial edema, vascular congestion, and possible infiltrates. Her ammonia level is 51. Assessment And Plan: 1. Line sepsis with catheter infection of MRSA in an 83-year-old female coming in status post fall. 2. Altered mental status. 3. Leukopenia. 4. Anemia of chronic disease. 5. Thrombocytopenia, resolved, most likely secondary to sepsis. Consider sending procalcitonin. Continue current treatment total of 2 weeks. Can be switched to oral doxycycline and Zithromax on discharge. We will follow the patient as needed. Thank you, Dr. Tipton for consult. NF/MODL Voice ID: [id number] Report ID: [id number] [facility]
[2024-09-27 06:05] LABS: Hematocrit 24.5 % (36.0-45.0); Hemoglobin 8.7 g/dL (12.0-15.0); MCH 29.5 pg (27.0-35.0); MCHC 35.4 g/dL (32.0-36.0); MCV 83.4 fL (80-100); MPV 7.5 fL (7.6-11.3); RBC Red Blood Cell Count 2.94 M/uL (3.86-4.86); White Blood Count 3.80 thou/uL (4.3-10.9)
[2024-09-27 06:19] LABS: Anion Gap 7.6 mEq/L (5.0-15.0); BUN Blood Urea Nitrogen 20.0 mg/dL (7-18); C-Reactive Protein 12.8 mg/L (<3.00); Glucose Level 88.0 mg/dL (74-106); Magnesium 1.9 mg/dL (1.6-2.4); Potassium 3.6 mEq/L (3.5-5.1)
[2024-09-27 06:23] LABS: PT Prothrombin Time 13.4 SECONDS (10-13.0); PTT, Activated Partial Thromb 28.0 SECONDS (27.2-37.4); Protime INR 1.19
[2024-09-27 06:49] LABS: ALT/SGPT 45.0 U/L (13-56); AST/SGOT 33.0 U/L (15-37); Albumin 2.5 g/dL (3.4-5.0); Albumin/Globulin Ratio 0.6 (1.1-1.8); Alkaline Phosphatase 120.0 U/L (45-117); Anion Gap 6.6 mEq/L (5.0-15.0); BUN Blood Urea Nitrogen 20.0 mg/dL (7-18); Globulin 4.3 g/dL (2.3-3.5); Glucose Level 89.0 mg/dL (74-106); Magnesium 1.8 mg/dL (1.6-2.4); NT PRO-BNP 686.0 pg/mL (<450); Potassium 3.6 mEq/L (3.5-5.1); Thyroid Stimulating Hormone 0.811 uIU/mL (0.358-3.740)
[2024-09-27] MEDS: MAGNESIUM SULFATE 1 gm IVPB 1 GM/100 ML BAG IV ONE (08:00)
[2024-09-27] MEDS: POTASSIUM CL SA 10 MEQ TAB PO ONE (10:29)
--- NOTE | 2024-09-27 12:39 | P.PN ---
Date of Service: 09/27/24 subjective: pt tolerate abx with no issue. pt states has headache, bp slightly elevated. CT head normal. echo normal, wbc wnl objective Temp Pulse Resp BP Pulse Ox 97.6 F 65 19 143/64 H 95 09/27/24 08:00 09/27/24 10:31 09/27/24 08:00 09/27/24 10:31 09/27/24 08:00 Physical Exam General: Awake and alert HEENT: Atraumatic Respiratory: Clear to auscultation Cardiovascular: RRR Gastrointestinal: Soft on palpation, active bowel sounds, ND, NT Musculoskeletal: No clubbing Neurological: Normal speech, Normal tone labs: 3.8, hgb 8.7, plt count 161, bun 20, cr 1.04 assessment and planning 1. Line sepsis with MRSA catheter infection status post fall 2. Altered mental status. 3. Leukopenia. 4. Anemia of chronic disease. 5. Thrombocytopenia, resolved 6. elevated blood pressure continue abx duration for a total of 2 weeks. can be switch to PO doxycycline and azithromycin on discharge will f/u with patient as needed advise pt to follow up with pcp after discharge case discussed and in agreement with Dr So
[2024-09-27 12:54] VITALS: BP 120/58; TEMP 98.9
--- NOTE | 2024-09-28 14:21 | CON ---
Date of Consultation: 09/18/2024 Reason For Consult: Evaluate the patient for agitation and recommend treatment plan. History Of Present Illness: Ms. Brielle Carlton was admitted via the ER on account of history of ri ght hip pain from multiple falls, with most recent fall being a day prior to presentation when she avina d briefly lost consciousness and was found by her son. History shows that the patient re-injured the left hip injury from previous fall for anxiety disorder. On evaluation, the patient was found to be tearful and moderately agitated. her location. Daughter who was at bedside r eported that her confusion increases after waking up in the morning and around meal times. She state s she can get breathing uncomfortable and more difficult to get her to settle down. The patient does have history of dementia and has been on medication per at baseline. The patient also states that her main issues and she is frustrated that she is losing her ind ependence. Does live in an son's property. The patient states her son checks up on her r egularly. During the course of evaluation, the patient continued to experience feeling emotionally d istressed over family issues of which she was not able to elaborate upon. There is no history of phy sical aggression. No history of psychosis, drug or alcohol abuse. No history or evidence of exposur e to heavy metals. Past Medical History: Reveals multiple episodes of cerebrovascular accidents complicated by seizure secondary to a stroke and history of hip replacement. Medications: She is currently on cholesterol medications, antidepressants of which she takes sertral ine 100 mg daily and she also takes buspirone which was added a month ago for anxiety. The patient renal failure. Review of Systems: Reveals increased confusion and agitation from recent fall. CT head done on presentation is negative for any new findings. CT pelvis is negative for any new fin dings as well. Chest x-ray did not show any evidence of pneumonia. Mental Status Examination: The patient is a frail looking female who was met lying in bed, agitated and tearful, expressing pain and discomfort when left leg is moved. Oriented to person and place, bu t not time. Speech is continuous. She is hyperverbal, occasionally loud. noted. Mood i rritable. Affect is mood congruent. Thought process is fund of knowledge. Insight, judg ment, and impulse control is poor. Language fair. Assessment: Increased confusion and agitation, likely related to vascular dementia and recent fall, emotional distress due to family dynamics . Diagnoses: 1. Altered mental status. 2. Vascular dementia. 3. Mood disorder, unspecified. 4. Anxiety disorder, unspecified. 5. Insomnia, unspecified. Recommendations: 1. Discontinue buspirone as this might contribute to patient agitation. 2. We will continue sertraline 100 mg p.o. daily. 3. Restart Abilify 2.5 mg p.o. daily for mood stabilization. 4. Consider admission to halfway facility for 24-hour care and when the patient is stable. 5. Neurologist assists management of the patient's dementia. The patient does not require acute psyc hiatric inpatient admission at this time as she is not suicidal or homicidal ideation. Psychiatric outpatient followup and discussed treatment recommendation with management team. CESAR/SOL Voice ID: [id number] Report ID: [id number]
== END 2024-09-27 13:37 | DRG 315 ==
LOC: ER 12:07 → 2ND 17:55
PROVIDERS: ADMIT Internal Medicine; ATTEND Internal Medicine
DX: T80.211A Bloodstream infection due to central venous catheter, initial encounter (principal); L03.116 Cellulitis of left lower limb; R64 Cachexia; Z68.1 Body mass index [BMI] 19.9 or less, adult; Z11.52 Encounter for screening for COVID-19; Z23 Encounter for immunization; Z91.81 History of falling; E87.6 Hypokalemia; E78.5 Hyperlipidemia, unspecified; M47.896 Other spondylosis, lumbar region; F03.90 Unspecified dementia, unspecified severity, without behavioral disturbance, psychotic disturbance, mood disturbance, and anxiety; F32.A Depression, unspecified; Z98.890 Other specified postprocedural states; Z79.899 Other long term (current) drug therapy; W19.XXXA Unspecified fall, initial encounter; Y92.239 Unspecified place in hospital as the place of occurrence of the external cause; M62.838 Other muscle spasm; G47.00 Insomnia, unspecified; F41.9 Anxiety disorder, unspecified; B95.62 Methicillin resistant Staphylococcus aureus infection as the cause of diseases classified elsewhere; D63.8 Anemia in other chronic diseases classified elsewhere; D69.6 Thrombocytopenia, unspecified; Z96.649 Presence of unspecified artificial hip joint; Z86.73 Personal history of transient ischemic attack (TIA), and cerebral infarction without residual deficits
CPT/HCPCS: 36415; 70450; 71045; 71275; 72131; 72192; 80048; 80053; 80061; 80177; 81001; 82140; 82533; 82607; 82728; 83540; 83605; 83735; 83880; 84100; 84132; 84439; 84443; 84466; 84484; 85025; 85027; 85379; 85610; 85730; 86140; 87040; 87070; 87077; 87186; 87428; 93005; 93306; 95816; 96360; 96361; 97110; 97161; 97530; 99285; J0360; J0696; J1644; J2270; J2405; J2543; J3475; J7030; J7040; Q9967